=== PATIENT | female | born 1970 | race African-American/Black ===

== ENCOUNTER 2022-12-02 14:07 | Emergency (ER) | payer OTHER ==
[~2022-12-02] VITALS: Ht 162.6 cm; Wt 93.0 kg
[2022-12-02 14:15] VITALS: O2SAT 97
[2022-12-02] MEDS ORDERED: ACETAMINOPHEN 325MG TABLET PO ONE (14:15)
[2022-12-02] MEDS ORDERED: CYCLOBENZAPRINE 10MG TABLET PO ONE (14:15)
[2022-12-02] MEDS ORDERED: METH-653 MT (15:38)
[2022-12-02] MEDS ORDERED: ACET-2708 MT (15:38)
[2022-12-02 17:27] VITALS: BP 157/86; PULSE 83; RESP 16; TEMP 99
== END 2022-12-02 17:28 | disposition home or self-care (01) ==
LOC: ER 14:12
DX: S09.90XA Unspecified injury of head, initial encounter (principal); I10 Essential (primary) hypertension; W18.39XA Other fall on same level, initial encounter; Y93.89 Activity, other specified; Y92.89 Other specified places as the place of occurrence of the external cause; Y99.8 Other external cause status
CPT/HCPCS: 99284